=== PATIENT | male | born 1975 | race Native Hawaiian/Other Pacific Islander ===

== ENCOUNTER 2021-02-20 09:32 | Outpatient (CLI) | payer OTHER | END 2021-02-20 20:57 | disposition home or self-care (01) | LOC: MRI 09:32 | PROVIDERS: ATTEND Nurse Practitioner Family | DX: M25.551 Pain in right hip (principal); M25.571 Pain in right ankle and joints of right foot ==

== ENCOUNTER 2022-09-06 10:08 | Outpatient (CLI) | payer OTHER | END 2022-09-06 20:40 | disposition home or self-care (01) | LOC: RAD 10:08 | PROVIDERS: ATTEND Nurse Practitioner Family | DX: M54.59 Other low back pain (principal); M54.6 Pain in thoracic spine; M54.2 Cervicalgia; M25.512 Pain in left shoulder; M25.511 Pain in right shoulder; M10.9 Gout, unspecified ==

== ENCOUNTER 2023-01-18 10:14 | Outpatient (CLI) | payer OTHER | END 2023-01-18 20:50 | disposition home or self-care (01) | LOC: RAD 10:14 | PROVIDERS: ATTEND Nurse Practitioner Family | DX: M79.674 Pain in right toe(s) (principal) ==

== ENCOUNTER 2023-05-13 11:23 | Outpatient (CLI) | payer OTHER | END 2023-05-13 19:16 | disposition home or self-care (01) | LOC: US 11:23 | PROVIDERS: ATTEND Nurse Practitioner Family | DX: N50.812 Left testicular pain (principal) ==